=== PATIENT | male | born 1990 | race Caucasian/White ===

== ENCOUNTER 2016-11-28 20:03 | Emergency (ER) | payer OTHER ==
[2016-11-28 20:10] VITALS: RESP 18; TEMP 98.4
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
[2016-11-28] MEDS ORDERED: IBUPROFEN 600 MG TAB PO ONE ×2 (20:20→20:49)
[2016-11-28] MEDS ORDERED: ONDANSETRON DISINTEGRATING 4 MG TAB ONE (20:20)
[2016-11-28] MEDS ORDERED: OXYCODONE/APAP 5/325 TAB ONE (20:20)
[2016-11-28] MEDS ORDERED: HYDROCOD/APAP 5/325 PREPACK#6 BTL TAKEHOME ONE (20:24)
[2016-11-28] MEDS ORDERED: ONDANSETRON 4MG PREPACK#2 BTL TAKEHOME ONE (20:24)
[2016-11-28] MEDS ORDERED: OXYCODONE/APAP 5/325 TAB PO ONE (20:49)
[2016-11-28] MEDS ORDERED: ONDANSETRON DISINTEGRATING 4 MG TAB PO ONE (20:49)
[2016-11-28 21:27] VITALS: BP 128/85; PULSE 82; O2SAT 97
== END 2016-11-28 21:27 | disposition home or self-care (01) ==
DX: S42.022A Displaced fracture of shaft of left clavicle, initial encounter for closed fracture (principal); S09.93XA Unspecified injury of face, initial encounter; V18.2XXA Unspecified pedal cyclist injured in noncollision transport accident in nontraffic accident, initial encounter; Y92.89 Other specified places as the place of occurrence of the external cause; Y99.8 Other external cause status; Y93.89 Activity, other specified
CPT/HCPCS: A4565